=== PATIENT | male | born 1955 | race Caucasian/White ===

== ENCOUNTER → 2017-06-30 | Day surgery (SDC) | payer OTHER ==
[~2017-06-30] VITALS: Ht 165.1 cm; Wt 80.3 kg
[~2017-06-30] MED LIST: 0.9% Sodium Chloride 1,000 ML IV ONE; 0.9% Sodium Chloride 1,000 ML IV SCH; ASPI-973 PO; ATRV10T PO; CETI10TA27 PO; Sodium Chloride LOK Flush 10 mL Syringe IV PRN; fentaNYL-PF 50 mCg/mL 2 mL Inj IVPUSH PRN
[2017-06-30 11:29] VITALS: BP 142/89; PULSE 64; RESP 17; O2SAT 99
--- NOTE | 2017-06-30 12:14 | PCM.ENDCOL ---
Colonoscopy Date of Service: Jun 30, 2017 Physician Wilber Granados MD Pre Procedure Diagnosis: Screening Post Procedure Dx & Findings: Polyp hemorrhoids Procedure Colonoscopy PROCEDURE IN DETAIL: Prep adequate Withdrawal time 9 minutes After unremarkable rectal examination the Olympus video colonoscope was inserted patient's anal canal and was advanced to cecum. Landmarks were identified including the ileocecal valve and appendiceal orifice. Scope was withdrawn systematically. Visualized colonic mucosa showed healthy shiny mucosa with normal healthy-appearing vasculature. It was a 3 mm polyp in the ascending colon which was removed completely using cold snare. In the rectum retroflexion was done which showed hemorrhoids. Anal canal was inspected carefully on the way out and hemorrhoids noted. Impression No family or prior personal history of colon cancer or polyp. Polyp 1 status post complete removal Hemorrhoids Recommendation Repeat colonoscopy 5 years Presedation Assessment Risks and Benefits Informed consent was obtained from the patient after all risks and benefits including but not limited to drug reaction, infection, pain, bleeding, perforation, as well as alternatives were discussed. Patient monitoring Continuous pulse oximetry, cardiac monitoring, blood pressure monitoring, IV access, and oxygen at 2L per nasal cannula. Periprocedural Fentanyl: Fentanyl 100mcg Incrementally Midazolam: Midazolam 5mg Incrementally Complications There were no periprocedural complications identified. Post Procedure Plan Post Procedure Recommendations 1. Restrict activities today. 2. Resume normal activities in the morning. 3. Resume medications. 4. Patient informed of normal post procedure side effects as bloating, drowsiness, blood streaking in the stool. 5. average risk CRCS. If colon polyps come back as: -Hyperplastic- can repeat colonoscopy in 10 years -Tubular adenoma- repeat colonoscopy in 5 years -Tubulovillous/villous adenoma- repeat colonoscopy in 3 years -If any dysplasia- return to clinic as soon as possible 6. Please don't hesitate to call me with any questions. Wilber Granados MD Jun 30, 2017 12:14
[2017-06-30 12:17] VITALS: BP 107/68; PULSE 64; RESP 16; O2SAT 97
[2017-06-30 12:27] VITALS: BP 98/58; PULSE 72; O2SAT 99
[2017-06-30 12:37] VITALS: BP 109/67; PULSE 62; O2SAT 99
--- NOTE | 2017-07-02 13:15 | PATH ---
SURGICAL PATHOLOGY Attending Physician:Wilber Granados M.D. CASE STATUS: Signed Out PATIENT NAME: MORE SULLIVAN PID: [id number] : 1955 DATE COLLECTED:06/30/2017 21:49 SPECIMEN: Colon, Polyp CLINICAL HISTORY: 1). ASCENDING POLYP X1 FINAL DIAGNOSIS: Ascending Colon Polyp, Polypectomy: Sessile serrated adenoma. ICD10: D12.2 GROSS DESCRIPTION: The specimen is received in one formalin filled container labeled with the patient's name, sublabeled "ascending polyp x1" and consists of 4 portions of tissue which aggregate to 0.3 x 0.2 x 0.2 CM. The specimen is entirely submitted in one cassette. 06/30/2017DC ICD-9 CODES: CPT CODES: 1: 37039 Electronically Signed Out Nima Lindsey MD, Ph.D. [facility]ology [facility] [address], [place] [address] Technical component performed at [facility], [facility] [address], [place], [address]
== END | disposition home or self-care (01) ==
LOC: END 00:37
PROVIDERS: ATTEND Internal Medicine
DX: Z12.11 Encounter for screening for malignant neoplasm of colon (principal); D12.2 Benign neoplasm of ascending colon; K64.8 Other hemorrhoids; Z80.0 Family history of malignant neoplasm of digestive organs; I10 Essential (primary) hypertension; E78.00 Pure hypercholesterolemia, unspecified; Z79.82 Long term (current) use of aspirin
CPT/HCPCS: 45385; G0500; J2250; J3010; J7030